=== PATIENT | female | born 1955 | race Caucasian/White ===

== ENCOUNTER 2019-09-03 14:46 | Emergency (ER) | payer BC ==
[~2019-09-03] VITALS: Ht 180.3 cm; Wt 93.2 kg
[2019-09-03 14:55] VITALS: BP 172/94
--- NOTE | 2019-09-03 15:20 | NUR ---
PT REPORTS FILLING TIRE TODAY, AND UPON INFLATION THE RIM OF THE TIRE "EXPLODED"-MULTIPLE SUPERFICIAL ABRASIONS EVIDENT ON PT'S FACE. PT DENIES EYE INVOLVEMENT. REPORTS TAKING A PIECE OF METAL OUT OF ONE SMALL LAC TO PT'S LOWER LIP.
[2019-09-03] MEDS ORDERED: FLUORESCEIN OPHTHALMIC 1 MG STRIP LEFTEYE ONE (16:00)
[2019-09-03] MEDS ORDERED: FLUORESCEIN OPHTHALMIC 1 MG STRIP ONE (16:05)
[2019-09-03] MEDS ORDERED: NEOSPORIN OINT. PKT 1 PACKET ONE (17:10)
[2019-09-03] MEDS ORDERED: DIPH,PERTUSS(ACELL),TET VAC/PF 0.5 ML IM-VACC ONE (17:21)
[2019-09-03] MEDS ORDERED: DIPHTHERIA-TETANUS ADULT 0.5ML IM-VACC ONE (17:30)
--- NOTE | 2019-09-03 18:02 | NUR ---
TASK RN: DC EDUCATION PROVIDED BY RUBIN HAQUE. PT AMBULATED STEADILY TO DC WITH SHABNAM AND FAMILY MEMBER WHO WILL ASSIST PT HOME.
== END 2019-09-03 18:03 | disposition home or self-care (01) ==
LOC: ED 16:50
DX: S00.212A Abrasion of left eyelid and periocular area, initial encounter (principal); X58.XXXA Exposure to other specified factors, initial encounter; Y93.89 Activity, other specified; Y92.89 Other specified places as the place of occurrence of the external cause; Y99.8 Other external cause status
CPT/HCPCS: 70150; 90471; 90714